=== PATIENT | female | born 1955 | race Two or more races ===

== ENCOUNTER 2020-07-31 17:38 | Emergency (ER) | payer OTHER ==
[~2020-07-31] VITALS: Ht 160 cm; Wt 59.0 kg
[2020-07-31 18:27] VITALS: BP 130/80
[2020-07-31] MEDS ORDERED: Ketorolac 30mg Inj IM ONE (18:30)
--- NOTE | 2020-07-31 18:35 | NUR ---
ED Nurse Note:pt. sliped and fell today at work, hitting her nose on the corner, no bleeding on arrival, nose looks swallen and bruised
--- NOTE | 2020-07-31 19:10 | NUR ---
ED Nurse Note: Report received from RICCO Tanner. Pt sitting in chair, light nose bleed noted. Nose appears swollen and bruised. Waiting for CT results. Fluids offered and accepted. No complaints from pt at the [facility].
--- NOTE | 2020-07-31 19:37 | Diagnostic Imaging Report ---
EXAM: CT Head Without Intravenous Contrast CLINICAL HISTORY: TRAUMA TECHNIQUE: Axial computed tomography images of the head/brain without intravenous contrast. CTDI is 68.70 mGy and DLP is 1280.90 mGy-cm. One or more of the following dose reduction techniques were used: automated exposure control, adjustment of the mA and/or kV according to patient size, use of iterative reconstruction technique. COMPARISON: None FINDINGS: Brain: No acute infarct or hemorrhage. No extra-axial fluid collection. No mass effect or midline shift. Ventricles and sulci: Normal. No ventriculomegaly or intraventricular hemorrhage. Bones: Hyperostosis frontalis interna. No bony lesion or acute fracture. Subcutaneous tissues: Normal. Sinuses: Normal. No air-fluid levels or mucosal thickening. Mastoid air cells: Normal. Orbits: Grossly unremarkable. IMPRESSION: No acute intracranial abnormality.
--- NOTE | 2020-07-31 19:39 | Emergency Room Report ---
History of Present Illness General Chief Complaint: Nosebleed Source: Patient Present Illness HPI 65-year-old female with no significant past medical history currently not taking any blood thinners here status post fall and injury to nasal septum. Patient reports that she was at work, holding a book. A cascade as she tripped and fell, hitting her nose to the close CAT scan. Denies any loss of consciousness, dizziness and headache. Denies any blurry vision. Obvious nosebleed noted however nosebleed is controlled with applying pressure. Has not taken medication for symptom relief. Obvious deformity left-sided nasal septum noted. No periorbital swelling noted. No entrapment noted. No bleeding to the ear noted. No septal hematoma noted. Patient speaking full sentences and has a steady gait. Allergies: Coded Allergies: SULFA (SULFONAMIDE ANTIBIOTICS) (Verified Allergy, Intermediate, 07/31/20) TETRACYCLINES (Verified Allergy, Intermediate, 07/31/20) COVID-19 Screening COVID-19 risk:Contact w/high r: No Has patient experienced landeros: No COVID-19 Testing performed WRONG ADDRESS CLERK: No Patient History Past Medical History: unable to obtain Past Surgical History: none Pertinent Family History: none Now: No Immunizations: UTD Reviewed Nursing Documentation: PMH: Agreed; PSxH: Agreed Nursing Documentation-PMH Past Medical History: No Stated History Review of Systems All Other Systems: negative except mentioned in HPI Physical Exam Vital Signs Date Time Temp Pulse Resp B/P (MAP) Pulse Ox O2 Delivery O2 Flow Rate FiO2 07/31/20 18:03 97.9 74 18 130/80 (97) 98 Room Air Sp02 EP Interpretation: reviewed, normal General Appearance: normal inspection, alert, no apparent distress, GCS 15 Head: normocephalic, atraumatic Eyes: normal eye exam, PERRL, EOMI, lids + conjunctiva normal, no hyphema, no racoon eyes ENT: normal ENT inspection, TMs + canals normal, oropharynx normal, no martinez signs Neck: trach midline, no bony tend, full range of motion without pain Respiratory: effort normal, no retractions, clear to auscultation, chest symmetrical, palpation of chest normal, speaking in full sentences Cardiovascular: regular rate, rhythm, no JVD Gastrointestinal: non-tender, no mass Musculoskeletal: gait & station normal Skin: no rash Lymphatic: normal inspection Neurologic: oriented x3, sensory intact, motor strength/tone normal, normal speech Psychiatric: normal inspection, memory normal, mood normal, no rangel icidal/homicidal ideation Medical Decision Making PA Attestation All diagnoses and treatment plans were reviewed and discussed with my supervising physician Dr. Wang Diagnostic Impression: Primary Impression: Closed nondisplaced fracture of nasal bone Additional Impression: Head contusion ER Course 65-year-old female with no significant past medical history currently not taking any blood thinners here status post fall and injury to nasal septum. Patient reports that she was at work, holding a book. A cascade as she tripped and fell, hitting her nose to the close CAT scan. Denies any loss of consciousness, dizziness and headache. Denies any blurry vision. Obvious nosebleed noted however nosebleed is controlled with applying pressure. Has not taken me dication for symptom relief. Obvious deformity left-sided nasal septum noted. No periorbital swelling noted. No entrapment noted. No bleeding to the ear noted. No septal hematoma noted. Patient speaking full sentences and has a steady gait. Ddx considered but are not limited to: cerebral hematoma, concussion, skull fracture, head contusion Vital signs: are WNL, pt. is afebrile H&PE are most consistent with: Head contusion, nondisplaced nasal bone fracture ORDERS: head CT no contrast, facial CT no contrast, Motrin, phenylephrine nasal spray ED INTERVENTIONS: Phenylephrine nasal spray, Toradol IM DISCHARGE: At this time pt. is stable for d/c to home. Will provide printed patient care instructions, and any necessary prescriptions. Care plan and follow up instructions have been discussed with the patient prior to discharge. Take medication as directed, follow-up with ENT, if worsening symptoms return to the emergency room CT/MRI/US Diagnostic Results CT/MRI/US Diagnostic Results #1: Imaging Test Ordered: CT head no contrast Impression FINDINGS: Brain: No acute infarct or hemorrhage. No extra-axial fluid collection. No mass effect or midline shift. Ventricles and sulci: Normal. No ventriculomegaly or intraventricular hemorrhage. Bones: Hyperostosis frontalis interna. No bony lesion or acute fracture. Subcutaneous tissues: Normal. Sinuses: Normal. No air-fluid levels or mucosal thickening. Mastoid air cells: Normal. Orbits: Grossly unremarkable. IMPRESSION: No acute intracranial abnormality. CT/MRI/US Diagnostic Results #2: Imaging Test Ordered: CT facial noncontrast Impression FINDINGS: BONES: Nondisplaced comminuted fractures of the nasal bones. Probable nondisplaced fracture of the bony nasal septum. SINUSES: Mild mucosal thickening in the ethmoid air cells. ORBITS: Normal. SOFT TISSUES: Calcifications in the maxillary and mandibular soft tissues. Nasal soft tissue swelling. OTHER: Tonsilloliths. IMPRESSION: Nondisplaced comminuted fractures of the nasal bones. Probable nondisplaced frac ture of the bony nasal septum. Last Vital Signs Date Time Temp Pulse Resp B/P (MAP) Pulse Ox O2 Delivery O2 Flow Rate FiO2 07/31/20 18:45 97.9 07/31/20 18:27 18 130/80 98 Room Air 07/31/20 18:03 74 Disposition: HOME, SELF-CARE Condition: Stable Referrals: NOT CHOSEN IPA/MD,REFERRING (PCP) Patient Instructions: Nasal Fracture, [id number] Additional Instructions: Take medication as directed, follow-up with ENT, if worsening symptoms return to the emergency room Juliano Perez Jul 31, 2020 19:39
--- NOTE | 2020-07-31 19:43 | Diagnostic Imaging Report ---
EXAM: CT Maxillofacial Without Intravenous Contrast CLINICAL HISTORY: TRAUMA TECHNIQUE: Axial computed tomography images of the face without intravenous contrast. CTDI is 68.70 mGy and DLP is 1280.90 mGy-cm. One or more of the following dose reduction techniques were used: automated exposure control, adjustment of the mA and/or kV according to patient size, use of iterative reconstruction technique. COMPARISON: None FINDINGS: BONES: Nondisplaced comminuted fractures of the nasal bones. Probable nondisplaced fracture of the bony nasal septum. SINUSES: Mild mucosal thickening in the ethmoid air cells. ORBITS: Normal. SOFT TISSUES: Calcifications in the maxillary and mandibular soft tissues. Nasal soft tissue swelling. OTHER: Tonsilloliths. IMPRESSION: Nondisplaced comminuted fractures of the nasal bones. Probable nondisplaced fracture of the bony nasal septum.
[2020-07-31] MEDS ORDERED: Phenylephrine 0.25% Nasal Spray NASAL ONE (19:45)
[2020-07-31] MEDS ORDERED: LORATADINE10 M2 PO (19:52)
[2020-07-31] MEDS ORDERED: IBUPROFEN600 M1 ORAL (19:52)
[2020-07-31] MEDS ORDERED: NASAL SPRAY30 M4 NS (19:52)
[2020-07-31 20:00] VITALS: BP 135/85
--- NOTE | 2020-07-31 20:00 | NUR ---
ER DISCHARGE NOTE: Patient is cleared to be discharged per ERMD, pt is aox4, on room air, with stable vital signs. pt was given dc and prescription instructions, copies of CT report given and Medical authorization form given. pt was able to verbalize understanding, pt id band removed. pt is able to ambulate with steady gait. pt took all belongings.
== END 2020-07-31 20:00 | disposition home or self-care (01) ==
LOC: EMR 18:36
DX: S02.2XXA Fracture of nasal bones, initial encounter for closed fracture (principal); W01.198A Fall on same level from slipping, tripping and stumbling with subsequent striking against other object, initial encounter; Y93.9 Activity, unspecified; Y92.9 Unspecified place or not applicable; Z88.2 Allergy status to sulfonamides; Z88.1 Allergy status to other antibiotic agents
CPT/HCPCS: 70450; 70486; 96372; 99284; J1885